=== PATIENT | female | born 1960 | race Native Hawaiian/Other Pacific Islander ===

== ENCOUNTER 2016-12-01 10:09 | Outpatient (CLI) | payer OTHER ==
[~2016-12-01 10:09] MED LIST: CETI10TA PO; CYCL10TA35 PO; DEXL60CA4 PO; FOLI1TAB26 PO; GABA100C2 PO; IBUP-97 PO; MAGICMOUTH PO; METHO2.5 PO; MOBIC7.5 M1 PO; PHENELX32; PLAQUENIL200 MG OR; PRED5TAB3 PO; SAVELLA50 MG OR; SUPER B COMP PO; TIZA4TAB5 PO; [UNRECOGNIZED DRUG - SUPPLY]
== END 2016-12-01 23:34 | disposition home or self-care (01) ==
LOC: RAD 10:09
DX: M85.89 Other specified disorders of bone density and structure, multiple sites (principal)

== ENCOUNTER 2019-08-04 11:14 | Outpatient (CLI) | payer OTHER | END 2019-08-04 22:25 | disposition home or self-care (01) | LOC: RAD 11:14 | DX: M06.09 Rheumatoid arthritis without rheumatoid factor, multiple sites (principal) ==